=== PATIENT | female | born 2005 | race Caucasian/White ===

== ENCOUNTER 2023-02-17 09:28 | Emergency (ER) | payer MEDICAID, SELFPAY ==
[2023-02-17 09:46] VITALS: BP 124/81; PULSE 78; RESP 14; TEMP 36.7; O2SAT 97; BMI 23.0
[2023-02-17 10:00] LABS: Basophils # 0.1 10^3/uL (0.0-0.1); Basophils % 0.4 %; Eosinophils # 0.1 10^3/uL (0.0-0.8); Eosinophils % 0.6 %; Hematocrit 47.4 % (36-47); Lymphocytes # 0.8 10^3/uL (1.5-6.5); Lymphocytes % 5.3 %; Mean Corpuscular Hemoglobin 31.3 pg (27-33); Mean Corpuscular Volume 92.2 fl (85-98); Mean Platelet Volume 10.5 fL (7.4-10.4); Monocytes # 0.8 10^3/uL (0.2-0.9); Monocytes % 5.6 %; Neutrophils % 87.6 %; Nucleated Red Blood Cells % 0 %; Platelet Count 250 10^3/cmm (157-399); Red Blood Count 5.14 10^6/uL (3.85-5.65); Red Cell Distribution Width 12.1 % (12.1-15.1); White Blood Count 14.04 10^3/uL (4.5-13.0)
[2023-02-17 10:27] LABS: HCG, Serum Qual Negative (Negative)
[2023-02-17 10:29] LABS: Alanine Aminotransferase 19 U/L (0-33); Albumin Level 5.3 g/dL (3.5-5.2); Alkaline Phosphatase 93 U/L (35-105); Anion Gap 15.2 (5-19); Aspartate Amino Transferase 16 U/L (0-32); Blood Urea Nitrogen 12 mg/dL (6-20); Calcium 9.8 mg/dL (8.5-10.5); Carbon Dioxide 25 mmol/L (22-29); Chloride 103 mmol/L (98-107); Creatinine Clr Calc Pharmacy 131.0071; Globulin 2.7 g/dL (1.3-4.6); Glomerular Filtration Rate 128.8 mL/min (90-130); Glucose 94 mg/dL (65-115); Lipase 35 U/L (13-60); Osmolality Calculated 288 mOsm/kg (285-295); Potassium 4.2 mmol/L (3.5-5.1); Sodium 139 mmol/L (136-145); Total Bilirubin 1.3 mg/dL (0.15-1.2)
== END 2023-02-17 12:21 | disposition left against medical advice (07) ==
PROVIDERS: Physician Assistant; Emergency Provider Family Medicine; PCP Pediatrics
DX: Z53.21 Procedure and treatment not carried out due to patient leaving prior to being seen by health care provider (principal)
CPT/HCPCS: 36415; 80053; 83690; 84703; 85025; 99283

== ENCOUNTER 2023-05-22 16:57 | Emergency (ER) | payer MEDICAID, SELFPAY ==
[2023-05-22 16:59] VITALS: BP 131/65; PULSE 74; RESP 18; TEMP 36.5; O2SAT 100; BMI 22.3
--- NOTE | 2023-05-22 17:02 | CTR_ITS ---
PROCEDURE INFORMATION: Exam: CT Head Without Contrast Exam date and time: 05/22/2023 5:24 PM Age: 17 years old Clinical indication: Syncope and collapse TECHNIQUE: Imaging protocol: Computed tomography of the head without contrast. Radiation optimization: All CT scans at this facility use at least one of these dose optimization techniques: automated exposure control; mA and/or kV adjustment per patient size (includes targeted exams where dose is matched to clinical indication); or iterative reconstruction. COMPARISON: No relevant prior studies available. RADIATION DOSE METRICS: Total DLP (mGy-cm): 1039 FINDINGS: Brain: No evidence of intra-axial or extra-axial hemorrhage. No mass effect or midline shift. Bai-white differentiation is maintained. Basilar cisterns are patent. Cerebral ventricles: No hydrocephalus. Paranasal sinuses: The visualized paranasal sinuses are well aerated. Mastoid air cells: The visualized mastoids and middle ears are clear. Bones/joints: The visualized calvarium and bony orbits are intact. Soft tissues: No gross soft tissue abnormality. CT/CT head wo con* [id number] IMPRESSION: 1. No acute intracranial abnormality.
--- NOTE | 2023-05-22 17:02 | ED_ITS ---
HPI - General Adult 2 General: Chief complaint: Syncope Stated complaint: syncope Time Seen by Provider: 05/22/23 16:58 Source: patient and EMS Mode of arrival: EMS Limitations: no limitations History of Present Illness: 17-year-old female who states she was at [employer] at a [employer] and while site was talking to friends states she started feel like her heart was racing and felt lightheaded and passed out. She does have history of anxiety and PTSD known known seizure history no witnessed seizure she states she just feels very tired currently she is unsure if she hit her head she denies any pain anywhere Associated symptoms: Reports palpitations and syncope; Deny chest pain, dyspnea, headache(s), nausea, rash or vomiting Review of Systems 2 Const: Denies: fever(s), chills, body aches or change in appetite Eyes: Denies: blurry vision or eye discomfort ENMT: Denies: throat pain Card: Reports: palpitations and syncope; Denies: chest pain Resp: Denies: dyspnea GI: Denies: abdominal pain, nausea, vomiting or diarrhea Musc: Denies: neck pain or back pain Skin/Breast: Denies: rash Neuro: Denies: headache(s) PFSH ED 2 PFSH: Medical History Psychiatric care Physical Exam 2 Const: COMMON NORMALS: no acute distress, patient oriented x3 and healthy appearing HENMT: COMMON NORMALS: normocephalic and atraumatic HEAD & SCALP: n ormocephalic and atraumatic Eye: COMMON NORMALS: Equal, round and reactive pupils present and EOMs intact bilaterally PUPIL: Yes Equal, round and reactive pupils present Neck/C-Spine: COMMON NORMALS: full ROM and supple Chest: COMMONS NORMALS: normal inspection of the chest Resp: COMMON NORMALS: normal respiratory effort, No retractions, No use of accessory muscles and clear to auscultation bilaterally AUSCULTATION: clear to auscultation bilaterally Cardio: COMMON NORMALS: regular rate, regular rhythm and No murmurs present (Cardio) RATE: regular rate RHYTHM: regular rhythm GI: COMMON NORMALS: Normal to inspection, nondistended, normoactive bowel sounds present, Soft to palpation, non-tender and no masses PALPATION: Yes Soft to palpation Extremity: COMMON NORMALS: normal to inspection and full ROM Neuro: COMMON NORMALS: patient oriented x3, moves all extremities and no focal motor deficits Psych: COMMON NORMALS: mental status grossly normal, Normal thought process present and cooperative THOUGHT PROCESS: Normal thought process present Skin: COMMON NORMALS: no rashes or lesions noted and no wounds GENERAL SKIN EXAM: no rashes or lesions noted Course 2 Vital Signs: Vital signs: Vital Signs Temperature 97.7 F 05/22/23 16:59 Pulse Rate 65 05/22/23 18:11 Respiratory Rate 18 05/22/23 16:59 Blood Pressure 111/67 05/22/23 18:11 Pulse Oximetry 100 05/22/23 18:11 Oxygen Delivery Me thod Room Air 05/22/23 18:11 MDM - General Adult Medical Decision Making Patient presents after syncopal event imaging blood work here is all normal she is awake and alert at her baseline she is stable for discharge she is follow-up with PCP and return if worsening. Medical Records I reviewed the patient's medical records. Lab Data I reviewed the patient's lab results. 05/22/23 17:38 05/22/23 17:[address] 05/22/23 17:02 IMPRESSION: 1. No acute intracranial abnormality. Laboratory Results WBC 6.29 10^3/uL (4.5-13.0) 05/22/23 17:38 RBC 4.45 10^6/uL (3.85-5.65) 05/22/23 17:38 Hgb 14.00 g/dL (12.4-14.8) 05/22/23 17:38 Hct 42.0 % (36-47) 05/22/23 17:38 MCV 94.4 fl (85-98) 05/22/23 17:38 MCH 31.5 pg (27-33) 05/22/23 17:38 MCHC 33.3 g/dL (30-55) 05/22/23 17:38 RDW 12.4 % (12.1-15.1) 05/22/23 17:38 Plt Count 200 10^3/cmm (157-399) 05/22/23 17:38 MPV 11.0 fL (7.4-10.4) H 05/22/23 17:38 Neut % (Auto) 58.4 % 05/22/23 17:38 Lymph % (Auto) 32.3 % 05/22/23 17:38 [place] % (Auto) 7.6 % 05/22/23 17:38 Eos % (Auto) 1.0 % 05/22/23 17:38 Baso % (Auto) 0.5 % 05/22/23 17:38 Neut # (Auto) 3.68 10^3/uL (1.8-8.0) 05/22/23 17:38 Lymph # (Auto) 2.0 10^3/uL (1.5-6.5) 05/22/23 17:38 [place] # (Auto) 0.5 10^3/uL (0.2-0.9) 05/22/23 17:38 Eos # (Auto) 0.1 10^3/uL (0.0-0.8) 05/22/23 17:38 Baso # (Auto) 0.0 10^3/uL (0.0-0.1) 05/22/23 17:38 Nucleated RBC % (auto) 0 % 05/22/23 17:38 Nucleated RBCs # 0.0 /100WBC 05/22/23 17:38 Sodium 137 mmol/L (136-145) 05/22/23 17:38 Potassium 3.4 mmol/L (3.5-5.1) L 05/22/23 17:38 Chloride 101 mmol/L (98-107) 05/22/23 17:38 Carbon Dioxide 27 mmol/L (22-29) 05/22/23 17:38 Anion Gap 12.4 (5-19) 05/22/23 17:38 BUN 14 mg/dL (6-20) 05/22/23 17:38 Creatinine 0.7 mg/dL (0.5-0.9) 05/22/23 17:38 GFR Calculation 107.8 mL/min (90-130) 05/22/23 17:38 Glucose 92 mg/dL (65-115) 05/22/23 17:38 Calculated Osmolality 284 mOsm/kg (285-295) L 05/22/23 17:38 Calcium 8.7 mg/dL (8.5-10.5) 05/22/23 17:38 HCG, Qual Negative (Negative) 05/22/23 17:38 Ethyl Alcohol < 10 mg/dL (0-10) 05/22/23 17:38 All radiology interpretation(s) finalized by discharge EKG Data EKG 1: I personally reviewed and interpreted this EKG as follows: EKG interpretation date: 05/22/23 EKG interpretation time: 17:36 Interpretation: nsr hr [address] or t wave abnormalities qrs 76 qtc 403 Computer generated interpretation: Head CT 05/22/23 17:02 IMPRESSION: 1. No acute intracranial abnormality. Discharge Plan Discharge Patient Disposition: Home Clinical Impression: Syncope Condition: Stable Prescriptions: No Action control PO DAILY trazodone 50 mg tablet 50 mg PO .HS PRN (Reason: insomnia) Qty: 30 2RF sertraline [Zoloft] 50 mg tablet 50 mg PO DAILY Qty: 30 2RF Discharge Orders: Discharge ED (Routine); Ordered 05/22/23 Ordered By: Beatrice Chang Referrals: Anderson Vasquez MD [Primary Care Provider] - Discharge Diet: Advance as tolerated Discharge Activity: Resume usual activity Patient Instructions: Syncope (ED) Coding Level of Care Code ED [employer] for [employer]
--- NOTE | 2023-05-22 17:26 | ECG_ITS ---
[facility] Test Date: 2023-05-22 Pat Name: Julianne Henderson Department: Room: Gender: Female Employment Attorney: : 2005 Requested By: Beatrice Chang Order Number: [id number] Irvin MD: Jaime Cross M.D. Measurements Intervals [place] Rate: 64 P: 54 TN: 150 QRS: 76 QRSD: 76 T: 78 QT: 394 QTc: 408 Interpretive Statements SINUS RHYTHM No previous ECG available for comparison Electronically Signed On 05-22-2023 17:46:39 LAYUP WORKER by Jaime Cross M.D. [email or web address]
[2023-05-22 17:48] LABS: Mean Corpuscular Volume 94.4 fl (85-98); Red Blood Count 4.45 10^6/uL (3.85-5.65); White Blood Count 6.29 10^3/uL (4.5-13.0)
[2023-05-22 17:49] LABS: Basophils % 0.5 %; Eosinophils # 0.1 10^3/uL (0.0-0.8); Lymphocytes % 32.3 %; Mean Corpuscular HGB Conc 33.3 g/dL (30-55); Mean Corpuscular Hemoglobin 31.5 pg (27-33); Monocytes # 0.5 10^3/uL (0.2-0.9); Monocytes % 7.6 %; Neutrophils # 3.68 10^3/uL (1.8-8.0); Neutrophils % 58.4 %; Nucleated Red Blood Cells % 0 %; Platelet Count 200 10^3/cmm (157-399); Red Cell Distribution Width 12.4 % (12.1-15.1)
[2023-05-22 18:03] LABS: HCG, Serum Qual Negative (Negative)
[2023-05-22 18:04] LABS: Anion Gap 12.4 (5-19); Blood Urea Nitrogen 14 mg/dL (6-20); Calcium 8.7 mg/dL (8.5-10.5); Carbon Dioxide 27 mmol/L (22-29); Chloride 101 mmol/L (98-107); Creatinine Clr Calc Pharmacy 115.1079; Glomerular Filtration Rate 107.8 mL/min (90-130); Glucose 92 mg/dL (65-115); Osmolality Calculated 284 mOsm/kg (285-295); Potassium 3.4 mmol/L (3.5-5.1); Sodium 137 mmol/L (136-145)
[2023-05-22 18:05] LABS: Alcohol Level < 10 mg/dL (0-10)
[2023-05-22 18:11] VITALS: BP 111/67; PULSE 65; O2SAT 100
== END 2023-05-22 18:21 | disposition home or self-care (01) ==
PROVIDERS: Emergency Provider Emergency Medicine; PCP Pediatrics
DX: R55 Syncope and collapse (principal)
CPT/HCPCS: 36415; 70450; 80048; 80307; 84703; 85025; 93005; 99284

== ENCOUNTER 2023-07-31 03:06 | Emergency (ER) | payer MEDICAID, SELFPAY ==
[2023-07-31 03:08] VITALS: BP 119/67; PULSE 67; RESP 18; TEMP 36.5; O2SAT 98; BMI 25.0
--- NOTE | 2023-07-31 03:16 | ED_ITS ---
HPI - Female Genitourinary 2 General: Chief complaint: Urogenital-Female Stated complaint: Peeing Blood Time Seen by Provider: 07/31/23 03:11 History of Present Illness: Patient presents to the ER with complaints of dysuria, urgency, frequency and hematuria. Patient stated she thinks she is getting to have a urinary tract infection was trying to wait until tomorrow to be followed up in clinic but throughout the night when she started noticing that she had blood in her urine and hurting worse she decided to come to the ER to be checked out. Patient denies any fever or chills. Date of Last Menstrual Period: 07/23/23 Review of Systems 2 General: Reports: 10 or more systems reviewed and unremarkable except in HPI and below PFSH ED 2 PFSH: Medical History Psychiatric care Female Reproductive History: Date of last menstrual period: 07/23/23 Physical Exam 2 Const: COMMON NORMALS: no acute distress, average body habitus, patient oriented x3, no limitations, healthy appearing, alert and well nourished HENMT: COMMON NORMALS: normocephalic, atraumatic, hearing grossly normal bilaterally, external ears normal, Normal external nose present, moist oral mucous membranes and oropharynx normal HEAD & SCALP: normocephalic and atraumatic NOSE: Normal external nose present EXTERNAL EAR: Yes external ears normal Neck/C-Spine: COMMON NORMALS: no JVD Chest: COMMONS NORMALS: normal inspection of the chest and normal palpation of entire chest wall Resp: COMMON NORMALS: normal respiratory effort, No retractions, No use of accessory muscles and clear to auscultation bilaterally AUSCULTATION: clear to auscultation bilaterally Cardio: COMMON NORMALS: no JVD, regular rate, regular rhythm, S1 normal heart sound present, S2 normal heart sound present, No gallops present (Cardio), No clicks present (Cardio), No murmurs present (Cardio) and No rub (Cardio) R ATE: regular rate RHYTHM: regular rhythm HEART SOUNDS: S1 normal heart sound present and S2 normal heart sound present GI: COMMON NORMALS: Normal to inspection, nondistended, normoactive bowel sounds present, Soft to palpation and no masses; negative for non-tender (Tender to palpate suprapubic) PALPATION: Yes Soft to palpation Neuro: COMMON NORMALS: patient oriented x3 SENSORIUM/ORIENTATION: Yes alert Course 2 Vital Signs: Vital signs: Vital Signs Temperature 97.7 F 07/31/23 03:08 Pulse Rate 60 07/31/23 03:39 Respiratory Rate 14 07/31/23 03:39 Blood Pressure 120/75 07/31/23 03:39 Pulse Oximetry 97 07/31/23 03:39 Oxygen Delivery Me thod Room Air 07/31/23 03:39 MDM - Female Medical Decision Making Patient had lab work including CBC CMP UA. UA showed positive for urinary tract infection. CMP showed potassium of 3.2 white count was 13.1. Patient be given Cipro and Pyridium in ER and discharged home with a prescription for both. Should follow-up with PCP in approximately 7 days or sooner as needed. Differential Diagnosis Likely abdominal pain; Unlikely acute appendicitis, calculus of kidney, constipation, diverticulitis, endometriosis, gastroenteritis, pancreatitis or small bowel obstruction Medical Records I reviewed the patient's medical records. Lab Data I reviewed the patient's lab results. 07/31/23 03:13 07/31/23 03:13 Laboratory Results WBC 13.17 10^3/uL (4.5-13.0) H 07/31/23 03:13 RBC 4.30 10^6/uL (3.85-5.65) 07/31/23 03:13 Hgb 13.80 g/dL (12.4-14.8) 07/31/23 03:13 Hct 39.2 % (36-47) 07/31/23 03:13 MCV 91.2 fl (85-98) 07/31/23 03:13 MCH 32.1 pg (27-33) 07/31/23 03:13 MCHC 35.2 g/dL (30-55) 07/31/23 03:13 RDW 12.5 % (12.1-15.1) 07/31/23 03:13 Plt Count 234 10^3/cmm (157-399) 07/31/23 03:13 MPV 10.7 fL (7.4-10.4) H 07/31/23 03:13 Neut % (Auto) 70.1 % 07/31/23 03:13 Lymph % (Auto) 20.7 % 07/31/23 03:13 [place] % (Auto) 7.1 % 07/31/23 03:13 Eos % (Auto) 1.2 % 07/31/23 03:13 Baso % (Auto) 0.4 % 07/31/23 03:13 Neut # (Auto) 9.24 10^3/uL (1.8-8.0) H 07/31/23 03:13 Lymph # (Auto) 2.7 10^3/uL (1.5-6.5) 07/31/23 03:13 [place] # (Auto) 0.9 10^3/uL (0.2-0.9) 07/31/23 03:13 Eos # (Auto) 0.2 10^3/uL (0.0-0.8) 07/31/23 03:13 Baso # (Auto) 0.1 10^3/uL (0.0-0.1) 07/31/23 03:13 Nucleated RBC % (auto) 0 % 07/31/23 03:13 Nucleated RBCs # 0.0 /100WBC 07/31/23 03:13 Sodium 135 mmol/L (136-145) L 07/31/23 03:13 Potassium 3.2 mmol/L (3.5-5.1) L 07/31/23 03:13 Chloride 99 mmol/L (98-107) 07/31/23 03:13 Carbon Dioxide 26 mmol/L (22-29) 07/31/23 03:13 Anion Gap 13.2 (5-19) 07/31/23 03:13 BUN 11 mg/dL (6-20) 07/31/23 03:13 Creatinine 0.6 mg/dL (0.5-0.9) 07/31/23 03:13 GFR Calculation 127.5 mL/min (90-130) 07/31/23 03:13 Glucose 92 mg/dL (65-115) 07/31/23 03:13 Calculated Osmolality 279 mOsm/kg (285-295) L 07/31/23 03:13 Calcium 8.9 mg/dL (8.5-10.5) 07/31/23 03:13 Total Bilirubin 0.6 mg/dL (0.15-1.2) 07/31/23 03:13 AST 13 U/L (0-32) 07/31/23 03:13 ALT 10 U/L (0-33) 07/31/23 03:13 Alkaline Phosphatase 79 U/L (35-105) 07/31/23 03:13 Total Protein 7.2 g/dL (6.6-8.7) 07/31/23 03:13 Albumin 4.5 g/dL (3.5-5.2) 07/31/23 03:13 Globulin 2.7 g/dL (1.3-4.6) 07/31/23 03:13 HCG, Qual Negative (Negative) 07/31/23 03:22 Urine Color Light yellow (Yellow) 07/31/23 03:22 Urine Appearance Hazy (CLEAR) A 07/31/23 03:22 Urine pH 6.5 (5-7) 07/31/23 03:22 Ur Specific [place] 1.005 (1.005-1.030) 07/31/23 03:22 Urine Protein 1+ (Negative) H 07/31/23 03:22 Urine Glucose (UA) Norm (Normal) 07/31/23 03:22 Urine Ketones Negative (Negative) 07/31/23 03:22 Urine Blood 3+ (Negative) H 07/31/23 03:22 Urine Nitrate Negative (Negative) 07/31/23 03:22 Urine Bilirubin Neg (Negative) 07/31/23 03:22 Urine Urobilinogen Neg mg/dL (Negative) 07/31/23 03:22 Ur Leukocyte Esterase 2+ (Negative) H 07/31/23 03:22 Urine RBC 15-25 /hpf (0-2) H 07/31/23 03:22 Urine WBC 25-40 /hpf (0-5) H 07/31/23 03:22 Ur Squamous Epith Cells 5-10 /hpf (0-5) H 07/31/23 03:22 Amorphous Sediment Not Reportable 07/31/23 03:22 Urine Bacteria 1+ /hpf (NONE) H 07/31/23 03:22 Urine Mucus 1+ /hpf 07/31/23 03:22 All radiology interpretation(s) finalized by discharge Discharge Plan Discharge Patient Disposition: Home Clinical Impression: Acute hypokalemia Urinary tract infection Qualifiers: Urinary tract infection type: acute cystitis Hematuria presence: with hematuria Qualified Code(s): N30.01 - Acute cystitis with hematuria Condition: Stable Prescriptions: New ciprofloxacin HCl 500 mg tablet 500 mg PO Q12H Qty: 20 0RF Pyridium 100 mg tablet 100 mg PO Q8H PRN (Reason: pain) Qty: 6 0RF No Action control PO DAILY omeprazole 20 mg capsule,delayed release(DR/EC) 10 mg PO DAILY prazosin 2 mg capsule 2 mg PO .HS Qty: 30 2RF sertraline [Zoloft] 100 mg tablet 100 mg PO DAILY Qty: 30 2RF trazodone 50 mg tablet 50 mg PO .HS PRN (Reason: insomnia) Qty: 30 2RF Discharge Orders: Discharge ED (Routine); Ordered 07/31/23 Ordered By: Irving You Referrals: Yanelis Prince TUBE DISPATCHER [Primary Care Provider] - 1 week Patient Instructions: Urinary Tract Infection - Women, Hypokalemia (ED) Activity Restrictions/Additional Instructions: Please take all your medicine as prescribed. Your lab work showed you have a UTI and your potassium is mildly low. Please follow-up with your family practice physician within the next 7 days for recheck and further evaluation and treatment. Coding Level of Care Code ED Cardiac Tech for Nayla Cervantes
[2023-07-31 03:22] LABS: Basophils # 0.1 10^3/uL (0.0-0.1); Basophils % 0.4 %; Eosinophils # 0.2 10^3/uL (0.0-0.8); Eosinophils % 1.2 %; Hematocrit 39.2 % (36-47); Lymphocytes # 2.7 10^3/uL (1.5-6.5); Lymphocytes % 20.7 %; Mean Corpuscular HGB Conc 35.2 g/dL (30-55); Mean Corpuscular Hemoglobin 32.1 pg (27-33); Mean Corpuscular Volume 91.2 fl (85-98); Mean Platelet Volume 10.7 fL (7.4-10.4); Monocytes # 0.9 10^3/uL (0.2-0.9); Monocytes % 7.1 %; Neutrophils # 9.24 10^3/uL (1.8-8.0); Neutrophils % 70.1 %; Nucleated Red Blood Cells % 0 %; Platelet Count 234 10^3/cmm (157-399); Red Cell Distribution Width 12.5 % (12.1-15.1); White Blood Count 13.17 10^3/uL (4.5-13.0)
[2023-07-31] MEDS: ketorolac 30 mg/mL INJ IVP (03:32)
[2023-07-31 03:38] LABS: Alanine Aminotransferase 10 U/L (0-33); Albumin Level 4.5 g/dL (3.5-5.2); Alkaline Phosphatase 79 U/L (35-105); Anion Gap 13.2 (5-19); Aspartate Amino Transferase 13 U/L (0-32); Blood Urea Nitrogen 11 mg/dL (6-20); Calcium 8.9 mg/dL (8.5-10.5); Carbon Dioxide 26 mmol/L (22-29); Chloride 99 mmol/L (98-107); Creatinine Clr Calc Pharmacy 145.0091; Globulin 2.7 g/dL (1.3-4.6); Glomerular Filtration Rate 127.5 mL/min (90-130); Glucose 92 mg/dL (65-115); Osmolality Calculated 279 mOsm/kg (285-295); Potassium 3.2 mmol/L (3.5-5.1); Sodium 135 mmol/L (136-145); Total Bilirubin 0.6 mg/dL (0.15-1.2); Total Protein 7.2 g/dL (6.6-8.7)
[2023-07-31 03:39] VITALS: BP 120/75; PULSE 60; RESP 14; O2SAT 97
[2023-07-31 03:41] LABS: HCG Qualitative Urine. Negative (Negative)
[2023-07-31 03:43] LABS: Glucose Urine UA Norm (Normal); Ketones Urine Negative (Negative); Protein Urine 1+ (Negative); Specific Gravity, Urine 1.005 (1.005-1.030); Urine Appearance Hazy (CLEAR); Urine Color Light yellow (Yellow); pH Urine 6.5 (5-7)
[2023-07-31 03:44] LABS: Add Urine Microscopic? YES; Bilirubin Urine Neg (Negative); Blood Urine 3+ (Negative); Leukocyte Esterase Urine 2+ (Negative); Nitrate Urine Negative (Negative); RBC Urine 15-25 /hpf (0-2); Urobilinogen Urine Neg (Negative)
[2023-07-31 03:45] LABS: Add Urine Culture? Yes; Bacteria Urine 1+ /hpf; Mucus Urine 1+ /hpf; WBC Urine 25-40 /hpf (0-5)
[2023-07-31] MEDS: ciprofloxacin 500 mg Tablet PO (03:52)
[2023-07-31] MEDS: phenazopyridine 100 mg Tablet PO (03:52)
[2023-07-31 04:01] VITALS: BP 104/72; PULSE 56; RESP 14; O2SAT 99
== END 2023-07-31 04:02 | disposition home or self-care (01) ==
PROVIDERS: Emergency Provider Emergency Medicine; PCP Nurse Practitioner Family
DX: N30.01 Acute cystitis with hematuria (principal); E87.6 Hypokalemia
CPT/HCPCS: 80053; 81001; 81025; 85025; 87086; 96374; 99284; J1885

== ENCOUNTER → 2023-10-29 14:36 | Outpatient (BNVA) | payer MEDICAID, SELFPAY | PROVIDERS: PCP Nurse Practitioner Family; Visit Provider Internal Medicine | DX: R07.9 Chest pain, unspecified (principal) | CPT/HCPCS: 93005 ==

== ENCOUNTER 2023-12-30 08:46 | Emergency (ER) | payer MEDICAID, SELFPAY ==
[2023-12-30] VITALS (9 sets, daily range): BP systolic 99–144; BP diastolic 59–83; PULSE 42–83; RESP 18; TEMP 37; O2SAT 95–98; BMI 21.6
--- NOTE | 2023-12-30 09:05 | ED_ITS ---
HPI - Headache 2 General: Chief Complaint: Headache Stated Complaint: migraine Time Seen by Provider: 12/30/23 09:00 History of Present Illness: 18-year-old female presents emergency ro om complaining of migraine. Throbbing feels like it is behind her eyes at times states it radiates down her neck. She did report a fever last week subjective that has resolved and not recurred. She has not had any rash. No head trauma she is not on any anticoagulants. She is taken several medications [id number] at home with no relief of her symptoms. She has a problem with migraines in the past this 1 is more intense than typical. She has photophobia and photophobia with headache. Associated symptoms: Deny chest pain, fever(s) or rash Related Data Home Medications Medication Instructions Recorded Confirmed omeprazole 20 mg capsule,delayed 20 mg PO DAILY 07/21/23 12/30/23 release prazosin 2 mg capsule 4 mg PO BEDTIME 12/30/23 12/30/23 trazodone 50 mg tablet 50 mg PO BEDTIME PRN insomnia 12/30/23 12/30/23 Previous Rx's Medication Instructions Recorded duloxetine 60 mg capsule,delayed 60 mg PO DAILY #30 caps 12/15/23 release (Cymbalta) sertraline 100 mg tablet (Zoloft) 100 mg PO DAILY #30 tabs 12/15/23 topiramate 25 mg sprinkle capsule 25 mg PO .QHS #30 caps 12/30/23 (Topamax) Allergies Allergy/AdvReac Type Severity Reaction Status Date / Time No Known Allergies Allergy Verified 12/30/23 08:56 Review of Systems 2 Const: Denies: fever(s) or chills Card: Denies: chest pain Resp: Denies: dyspnea GI: Denies: abdominal pain : Denies: dysuria, urinary frequency or urinary urgency Musc: Denies: neck pain or back pain Skin/Breast: Denies: rash Neuro: Reports: headache(s) PFSH ED 2 PFSH: Medical History Psychiatric care Family History Denies family history of Colon cancer Prostate cancer Thyroid cancer Diabetes Heart disease Hypercholesteremia Breast cancer Hypertension Uterine cancer Stroke Social History Smoking and tobacco/nicotine status: current every day tobacco/nicotine user (Vape) Physical Exam 2 Const: GENERAL APPEARANCE: cooperative ORIENTATION/CONSCIOUSNESS: Yes awake, Yes oriented to person, Yes oriented to place and Yes oriented to time HENMT: COMMON NORMALS: normocephalic, atraumatic and hearing grossly normal bilaterally HEAD & SCALP: normocephalic and atraumatic Neck/C-Spine: GENERAL: No lymphadenopathy and No Meningeal signs present Resp: COMMON NORMALS: normal respiratory effort, No retractions, No use of accessory muscles and clear to auscultation bilaterally AUSCULTATION: clear to auscultation bilaterally Cardio: COMMON NORMALS: regular rate, regular rhythm and No murmurs present (Cardio) RATE: regular rate RHYTHM: regular rhythm GI: COMMON NORMALS: Soft to palpation and No hepatosplenomegaly present A USCULTATION: Yes normoactive bowel sounds PALPATION: Yes Soft to palpation, No Tenderness to palpation present (GI), No Guarding due to palpation present (GI) and Yes No hepatosplenomegaly present Extremity: COMMON NORMALS: normal to inspection, capillary refill normal, no clubbing, cyanosis or edema, no calf tenderness and no pedal edema Neuro: SENSORIUM/ORIENTATION: Yes oriented to person, Yes oriented to place and Yes oriented to time Skin: COMMON NORMALS: no rashes or lesions noted GENERAL SKIN EXAM: no rashes or lesions noted Course 2 Vital Signs: Vital signs: Vital Signs Temperature 98.6 F 12/30/23 08:56 Pulse Rate 48 L 12/30/23 13:23 Respiratory Rate 18 12/30/23 09:06 Blood Pressure 144/83 12/30/23 13:23 Pulse Oximetry 95 12/30/23 13:23 MDM - Headache Medical Decision Making Migraine improved after medications given will discharge patient home encouraged her to follow-up with her primary care doctor will start her on Topamax 25 nightly. She can use Tylenol or Profen in addition to this if she has further headache. Return if this changes symptoms. Labs and imaging reviewed as found in the chart. Medical Records I reviewed the patient's medical records. Lab Data I reviewed the patient's lab results. 12/30/23 09:45 12/30/23 09:45 Laboratory Results WBC 8.12 10^3/uL (4.5-13.0) 12/30/23 09:45 RBC 4.41 10^6/uL (3.85-5.65) 12/30/23 09:45 Hgb 14.10 g/dL (12.4-14.8) 12/30/23 09:45 Hct 41.8 % (36-47) 12/30/23 09:45 MCV 94.8 fl (85-98) 12/30/23 09:45 MCH 32.0 pg (27-33) 12/30/23 09:45 MCHC 33.7 g/dL (30-55) 12/30/23 09:45 RDW 12.6 % (12.1-15.1) 12/30/23 09:45 Plt Count 223 10^3/cmm (157-399) 12/30/23 09:45 MPV 10.3 fL (7.4-10.4) 12/30/23 09:45 Neut % (Auto) 69.8 % 12/30/23 09:45 Lymph % (Auto) 21.9 % 12/30/23 09:45 [place] % (Auto) 7.4 % 12/30/23 09:45 Eos % (Auto) 0.1 % 12/30/23 09:45 Baso % (Auto) 0.4 % 12/30/23 09:45 Neut # (Auto) 5.67 10^3/uL (1.8-8.0) 12/30/23 09:45 Lymph # (Auto) 1.8 10^3/uL (1.5-6.5) 12/30/23 09:45 [place] # (Auto) 0.6 10^3/uL (0.2-0.9) 12/30/23 09:45 Eos # (Auto) 0.0 10^3/uL (0.0-0.8) 12/30/23 09:45 Baso # (Auto) 0.0 10^3/uL (0.0-0.1) 12/30/23 09:45 Nucleated RBC % (auto) 0 % 12/30/23 09:45 Nucleated RBCs # 0.0 /100WBC 12/30/23 09:45 Sodium 142 mmol/L (136-145) 12/30/23 09:45 Potassium 3.7 mmol/L (3.5-5.1) 12/30/23 09:45 Chloride 104 mmol/L (98-107) 12/30/23 09:45 Carbon Dioxide 26 mmol/L (22-29) 12/30/23 09:45 Anion Gap 15.7 (5-19) 12/30/23 09:45 BUN 9 mg/dL (6-20) 12/30/23 09:45 Creatinine 0.6 mg/dL (0.5-0.9) 12/30/23 09:45 GFR Calculation 127.5 mL/min (90-130) 12/30/23 09:45 Glucose 97 mg/dL (65-115) 12/30/23 09:45 Calculated Osmolality 293 mOsm/kg (285-295) 12/30/23 09:45 Calcium 8.6 mg/dL (8.5-10.5) 12/30/23 09:45 Total Bilirubin 0.6 mg/dL (0.15-1.2) 12/30/23 09:45 AST 12 U/L (0-32) 12/30/23 09:45 ALT 8 U/L (0-33) 12/30/23 09:45 Alkaline Phosphatase 69 U/L (35-105) 12/30/23 09:45 Total Protein 7.0 g/dL (6.6-8.7) 12/30/23 09:45 Albumin 4.5 g/dL (3.5-5.2) 12/30/23 09:45 Globulin 2.5 g/dL (1.3-4.6) 12/30/23 09:45 HCG, Qual Negative (Negative) 12/30/23 09:45 Urine Color Yellow (Yellow) 12/30/23 09:30 Urine Appearance Cloudy (CLEAR) A 12/30/23 09:30 Urine pH 5.5 (5-7) 12/30/23 09:30 Ur Specific [place] 1.015 (1.005-1.030) 12/30/23 09:30 Urine Protein Negative (Negative) 12/30/23 09:30 Urine Glucose (UA) Negative (Normal) 12/30/23 09:30 Urine Ketones Negative (Negative) 12/30/23 09:30 Urine Blood Negative (Negative) 12/30/23 09:30 Urine Nitrate Negative (Negative) 12/30/23 09:30 Urine Bilirubin Negative (Negative) 12/30/23 09:30 Urine Urobilinogen 0.2 mg/dL (Negative) 12/30/23 09:30 Ur Leukocyte Esterase 1+ (Negative) A 12/30/23 09:30 Urine RBC 0-2 /hpf (0-2) 12/30/23 09:30 Urine WBC 11-20 /hpf (0-5) H 12/30/23 09:30 Ur Squamous Epith Cells 11-20 /hpf (0-5) 12/30/23 09:30 Amorphous Sediment Not Reportable 12/30/23 09:30 Urine Bacteria None seen /hpf (NONE) 12/30/23 09:30 Hyaline Casts 0.81 /lpf 12/30/23 09:30 All radiology interpretation(s) finalized by discharge Discharge Plan Discharge Patient Disposition: Home Clinical Impression: Migraine Condition: Stable Prescriptions: New Topamax 25 mg capsule, sprinkle 25 mg PO .QHS Qty: 30 0RF No Action omeprazole 20 mg capsule,delayed release(DR/EC) 20 mg PO DAILY duloxetine [Cymbalta] 60 mg capsule,delayed release(DR/EC) 60 mg PO DAILY Qty: 30 2RF sertraline [Zoloft] 100 mg tablet 100 mg PO DAILY Qty: 30 2RF trazodone 50 mg tablet 50 mg PO BEDTIME PRN (Reason: insomnia) prazosin 2 mg capsule 4 mg PO BEDTIME Discharge Orders: Discharge ED (Routine); Ordered 12/30/23 Ordered By: Sonido Whitaker Referrals: Yanelis Prince, L[employer] IN HOUSEKEEPER NANNY [Primary Care Provider] - Discharge Diet: Usual diet Discharge Activity: Increase activity as tolerated Patient Instructions: Migraine Headache (ED), Opioid Safety, Pain Management Activity Restrictions/Additional Instructions: Thank you for choosing [facility] for your healthcare needs today. It is very important that you follow up as instructed or that you return to the Emergency Department should you have concerns or if your condition changes or worsens in any way. Coding Level of Care Code ED Utilization Management Um Nurse for Nayla Cervantes
[2023-12-30 09:42] LABS: Bilirubin Urine Negative (Negative); Blood Urine Negative (Negative); Glucose Urine UA Negative (Normal); Ketones Urine Negative (Negative); Leukocyte Esterase Urine 1+ (Negative); Nitrate Urine Negative (Negative); Protein Urine Negative (Negative); Specific Gravity, Urine 1.015 (1.005-1.030); Urine Appearance Cloudy (CLEAR); Urine Color Yellow (Yellow); Urobilinogen Urine 0.2 mg/dL (Negative); pH Urine 5.5 (5-7)
[2023-12-30] MEDS: sodium chloride 0.9% 1,000 ML 999 ML IV ×2 (09:43→11:33)
[2023-12-30 09:44] LABS: Add Urine Microscopic? YES; Bacteria Urine None Seen /hpf; Hyaline Casts Urine 0.81 /lpf; RBC Urine 0-2 /hpf (0-2)
[2023-12-30] MEDS: diphenhydrAMINE 50 mg/mL SDV 1mL IVP (09:44)
[2023-12-30] MEDS: ketorolac 30 mg/mL INJ IVP (09:46)
[2023-12-30 09:48] LABS: Add Urine Culture? No
[2023-12-30] MEDS: valproic acid inj 500 MG in sodium chloride 0.9% 50 ML 55 MG IV (09:48)
[2023-12-30 09:56] LABS: Basophils % 0.4 %; Eosinophils % 0.1 %; Hematocrit 41.8 % (36-47); Lymphocytes # 1.8 10^3/uL (1.5-6.5); Lymphocytes % 21.9 %; Mean Corpuscular HGB Conc 33.7 g/dL (30-55); Mean Corpuscular Volume 94.8 fl (85-98); Mean Platelet Volume 10.3 fL (7.4-10.4); Monocytes # 0.6 10^3/uL (0.2-0.9); Monocytes % 7.4 %; Neutrophils # 5.67 10^3/uL (1.8-8.0); Neutrophils % 69.8 %; Nucleated Red Blood Cells % 0 %; Platelet Count 223 10^3/cmm (157-399); Red Blood Count 4.41 10^6/uL (3.85-5.65); Red Cell Distribution Width 12.6 % (12.1-15.1); White Blood Count 8.12 10^3/uL (4.5-13.0)
[2023-12-30 10:12] LABS: HCG, Serum Qual Negative (Negative)
[2023-12-30 10:15] LABS: Alanine Aminotransferase 8 U/L (0-33); Albumin Level 4.5 g/dL (3.5-5.2); Alkaline Phosphatase 69 U/L (35-105); Anion Gap 15.7 (5-19); Aspartate Amino Transferase 12 U/L (0-32); Blood Urea Nitrogen 9 mg/dL (6-20); Calcium 8.6 mg/dL (8.5-10.5); Carbon Dioxide 26 mmol/L (22-29); Chloride 104 mmol/L (98-107); Creatinine Clr Calc Pharmacy 136.4411; Globulin 2.5 g/dL (1.3-4.6); Glomerular Filtration Rate 127.5 mL/min (90-130); Glucose 97 mg/dL (65-115); Osmolality Calculated 293 mOsm/kg (285-295); Potassium 3.7 mmol/L (3.5-5.1); Sodium 142 mmol/L (136-145); Total Bilirubin 0.6 mg/dL (0.15-1.2)
[2023-12-30] MEDS: dihydroergotamine 1 mg/mL Inj IVP (11:35)
[2023-12-30] MEDS: haloperidol inj 5 mg/mL INJ 1 mL 2.5 MG IVP (12:25)
[2023-12-30] MEDS: LORazepam 2 mg/mL INJ 1 mL 1 MG IVP (12:27)
== END 2023-12-30 13:40 | disposition home or self-care (01) ==
PROVIDERS: Emergency Provider Family Medicine; PCP Nurse Practitioner Family
DX: G43.909 Migraine, unspecified, not intractable, without status migrainosus (principal); F17.290 Nicotine dependence, other tobacco product, uncomplicated
CPT/HCPCS: 36415; 80053; 81001; 84703; 85025; 96365; 96375; 99284; J1110; J1200; J1630; J1885; J2060; J3490; J7030